=== PATIENT | male | born 1980 | race Caucasian/White ===

== ENCOUNTER → 2022-09-18 | Outpatient (CLI) | LOC: M SOG 07:56 | PROVIDERS: ATTEND Orthopaedic Surgery | DX: M25.561 Pain in right knee (principal) ==

== ENCOUNTER → 2022-10-07 | Outpatient (CLI) | payer OTHER | LOC: M PLAIMG 07:23 → EDSEX 08:00 | PROVIDERS: ATTEND Orthopaedic Surgery | DX: M25.561 Pain in right knee (principal); M23.303 Other meniscus derangements, unspecified medial meniscus, right knee ==

== ENCOUNTER → 2024-09-30 | Outpatient (CLI) | payer OTHER | LOC: M RAD 08:37 | PROVIDERS: ATTEND Physician Assistant | DX: R05.9 Cough, unspecified (principal); R06.00 Dyspnea, unspecified; R06.2 Wheezing ==